=== PATIENT | female | born 2000 | race Caucasian/White ===

== ENCOUNTER 2020-01-12 10:11 | Emergency (ER) | payer BC, SELFPAY ==
--- NOTE | ~2020-01-12 | XR_ITS ---
EXAMINATION: XR ankle LT min 3V DATE: 01/12/2020 11:35 INDICATION: Left ankle injury and pain. TECHNIQUE: 4 views of left ankle were obtained. COMPARISON: None. FINDINGS: Bone alignment is normal. There is a small fragment of heterotopic ossification at the ante rior aspect of the ankle joint on the lateral view without correlate on the other views. Joint spaces are normal. There is ankle soft tissue swelling. IMPRESSION: 1. Small fragment of heterotopic ossification at the anterior aspect of the ankle joint on the latera l view that may be an acute chip avulsion fracture of either the medial or lateral malleolus or a fin ding from old injury. Reviewed, dictated and finalized at location A. IMPRESSION: 1. Small fragment of heterotopic ossification at the anterior aspect of the ank le joint on the lateral view that may be an acute chip avulsion fracture of eit her the medial or lateral malleolus or a finding from old injury.
[2020-01-12 11:14] VITALS: BP 127/79; PULSE 83; RESP 18; TEMP 36.5; O2SAT 100
--- NOTE | 2020-01-12 12:26 | ED.GENADULT ---
HPI - General Adult General Chief complaint: Extremity Injury, Lower Stated complaint: left leg injury Time Seen by Provider: 01/12/20 11:51 Source: patient Mode of arrival: ambulatory Limitations: no limitations History of Present Illness HPI narrative: Patient is a 19-year-old female who presents to emergency department for evaluation of left ankle pain after having an individual slide into her ankle while playing softball today patient complains of pain to the anterior lateral aspect of the left ankle joint minimal to no swelling noted on exam patient denies other injuries or complaints has not had anything for pain presents with the sales trainer patient does have crutches Related Data Home Medications Medication Instructions Recorded Confirmed escitalopram oxalate [Lexapro] 10 mg PO DAILY 01/12/20 Allergies Allergy/AdvReac Type Severity Reaction Status Date / Time No Known Allergies Allergy Verified 01/12/20 11:50 Course Course Emergency Course: Patient in the room where of case findings treatment plan diagnosis placed in OCL splint will follow with orthopedic surgeon Vital Signs Vital signs: Vital Signs Temperature 97.7 F 01/12/20 11:14 Pulse Rate 83 01/12/20 11:14 Respiratory Rate 18 01/12/20 11:14 Blood Pressure 127/79 01/12/20 11:14 Pulse Oximetry 100 01/12/20 11:14 Temperature 97.7 F 01/12/20 11:14 Pulse Rate 83 01/12/20 11:14 Respiratory Rate 18 01/12/20 11:14 Blood Pressure 127/79 01/12/20 11:14 Pulse Oximetry 100 01/12/20 11:14 Procedures Orthopedic Splinting/Casting Injury #1: Splinting/Casting Date: 01/12/20 Splinting/Casting Time: 12:34 Side: left Lower Extremity Injury Location: ankle Splint: customized in ED OCL: short leg Pre-Procedure Neuro Vascular Exam: normal Post-Procedure Neuro Vascular Exam: normal Additional Comments: Patient placed in splint by the nurse neurovascularly intact pre and post procedure personally checked the splint myself Medical Decision Making MDM Narrative Medical decision making narrative: Patients injury or pain is consistent with musculoskeletal etiology. No signs of neurological or vascular compromise on exam. Compartments and tisues are soft without signs of compartment syndrome. Pain is felt appropriate for further evaluation on an outpatient basis. Vital Signs Vital Signs: Vital Signs Temperature 97.7 F 01/12/20 11:14 Pulse Rate 83 01/12/20 11:14 Respiratory Rate 18 01/12/20 11:14 Blood Pressure 127/79 01/12/20 11:14 Pulse Oximetry 100 01/12/20 11:14 Temperature 97.7 F 01/12/20 11:14 Pulse Rate 83 01/12/20 11:14 Respiratory Rate 18 01/12/20 11:14 Blood Pressure 127/79 01/12/20 11:14 Pulse Oximetry 100 01/12/20 11:14 Discharge Plan Discharge Clinical Impression: Ankle fracture, left Patient Disposition: Home, Self-Care Condition: Stable Instructions: Antibiotic Form, Ankle Fracture (DC) Additional Instructions: Wear brace and use crutches. No weight on the affected leg. Contact orthopedic surgery today to set up for reevaluation. Return if symptoms worsen or concerns or any increase in redness swelling pain fever over 100.5 or any loss of feeling or function in the extremity Prescriptions: New acetaminophen [Tylenol Arthritis Pain] 650 mg tablet extended release 650 mg PO Q8H PRN (Reason: pain) Qty: 7 RF: 0 ibuprofen [IBU] 600 mg tablet 600 mg PO Q6H PRN (Reason: fever or pain) Qty: 7 RF: 0 No Action escitalopram oxalate [Lexapro] 10 mg Tablet 10 mg PO DAILY RF: 0 Follow-up/Referrals: PHYSICIAN,[facility]URNER [Primary Care Provider] - Kobe Bullard MD [Physician] -
[2020-01-12] MEDS: IBUPROFEN 600 MG TABLET PO (12:27)
--- NOTE | 2020-01-12 12:27 | PC.NURSE ---
Radiology report and copy of X-rays given to patient and life trainer
[2020-01-12 13:00] VITALS: BP 120/78; PULSE 73; RESP 17; O2SAT 100
== END 2020-01-12 13:02 | disposition home or self-care (01) ==
PROVIDERS: Emergency Provider Emergency Medicine
DX: S82.892A Other fracture of left lower leg, initial encounter for closed fracture (principal); W51.XXXA Accidental striking against or bumped into by another person, initial encounter; Y93.64 Activity, baseball
CPT/HCPCS: 29515; 73610; 99284; A9270